=== PATIENT | female | born 1995 | race Caucasian/White ===

== ENCOUNTER 2017-04-12 07:49 | Inpatient (IN) | payer OTHER ==
[~2017-04-12] VITALS: Ht 162.6 cm; Wt 66.4 kg
[2017-04-15] MEDS ORDERED: OXYTOCIN 30U/ 0.9% NaCL 500ML 500 ML IV PRN (04:50)
[2017-04-15] MEDS ORDERED: OXYTOCIN 30U/ 0.9% NaCL 500ML 500 ML IV ONE (04:50)
[2017-04-15] MEDS ORDERED: LACTATED RINGERS 1,000 ML IV SCH ×3 (04:50→11:17)
[2017-04-15] MEDS ORDERED: D5%-LACTATED RINGERS 1,000 ML IV SCH (04:50)
[2017-04-15 05:00] VITALS: BP 120/65
[2017-04-15] MEDS ORDERED: ONDANSETRON 2MG/ML, 2ML IVPush PRN (05:00)
[2017-04-15] MEDS ORDERED: FENTANYL PF 100 MCG/2ML IVPush PRN (05:00)
[2017-04-15] MEDS ORDERED: FENTANYL PF 100 MCG/2ML IV PRN (05:00)
[2017-04-15] MEDS ORDERED: CALCIUM CARBONATE 500 MG TAB.CHEW PO PRN (05:00)
[2017-04-15] MEDS ORDERED: METOCLOPRAMIDE 5 MG/ML, 2ML IVPush PRN (05:00)
[2017-04-15] MEDS ORDERED: ALUMINUM/MAG/SIMETHICONE 30 ML UDC PO PRN (05:00)
[2017-04-15] MEDS ORDERED: TERBUTALINE 1 MG/ML, 1ML IVPush PRN (05:00)
[2017-04-15] MEDS ORDERED: SODIUM CHLORIDE FLUSH 10ML SYR IVF PRN (05:00)
[2017-04-15] MEDS ORDERED: OXYTOCIN 30U/ 0.9% NaCL 500ML 500 ML ONE ×2 (05:07→23:35)
[2017-04-15 05:27] LABS: HEMATOCRIT 33.6 % (34.6-47.8); HEMOGLOBIN 10.6 g/dL (11.7-16.4); WHITE BLOOD COUNT 10.8 x10^3/uL (3.4-10)
[2017-04-15] MEDS ORDERED: FENTANYL/BUPIV./NS/PF 250 ML EPIDCONT ONE (10:01)
[2017-04-15] MEDS ORDERED: BUPIVACAINE 0.25% ONE (10:04)
[2017-04-15] MEDS ORDERED: LIDOCAINE/PF 1.5%-EPI 1:200K, 30ML ONE (10:04)
[2017-04-15] MEDS ORDERED: FENTANYL/BUPIV./NS/PF 250 ML EPIDCONT SCH ×2 (10:58→11:17)
[2017-04-15] MEDS ORDERED: LACTATED RINGERS 1,000 ML IVBOLUS PRN ×2 (11:00→11:30)
[2017-04-15] MEDS ORDERED: EPHEDRINE 50 MG/ML, 1ML IVPush PRN ×2 (11:00→11:30)
[2017-04-15] MEDS ORDERED: NALOXONE 0.4 MG/ML, 1ML IVPush PRN ×2 (11:00→11:30)
[2017-04-15] MEDS ORDERED: ONDANSETRON 2MG/ML, 2ML ONE (22:45)
[2017-04-15] MEDS ORDERED: DIPH,PERTUSS(ACELL),TET VAC/PF NC IM-VACC PRN (23:00)
[2017-04-15] MEDS ORDERED: CARBOPROST TROMETHAMINE 250 MCG/ML, 1ML IM PRN (23:00)
[2017-04-15] MEDS ORDERED: OXYcodone/APAP 5/325MG TABLET PO PRN ×2 (23:00)
[2017-04-15] MEDS ORDERED: MEASLES,MUMPS&RUBELLA VACC/PF 0.5 ML SQ PRN (23:00)
[2017-04-15] MEDS ORDERED: METHYLERGONOVINE 0.2 MG/ML IM PRN (23:00)
[2017-04-15] MEDS ORDERED: MISOPROSTOL 200 MCG TABLET PR PRN (23:00)
[2017-04-15] MEDS ORDERED: DOCUSATE 100 MG CAPSULE PO PRN (23:00)
[2017-04-15] MEDS ORDERED: ONDANSETRON 2MG/ML, 2ML IV PRN (23:00)
[2017-04-15] MEDS ORDERED: ACETAMINOPHEN 325 MG TABLET PO PRN (23:00)
[2017-04-15] MEDS ORDERED: IBUPROFEN 600 MG TABLET PO PRN (23:00)
[2017-04-15] MEDS ORDERED: IBUPROFEN 600 MG TABLET ONE (23:02)
[2017-04-15] MEDS: OXYTOCIN 30U/ 0.9% NaCL 500ML 500 ML IV SCH (23:42)
[2017-04-16 01:02] VITALS: BP 110/59
[2017-04-16 03:54] VITALS: BP 101/54
[2017-04-16 06:23] LABS: HEMATOCRIT 31.3 % (34.6-47.8); HEMOGLOBIN 10.1 g/dL (11.7-16.4); WHITE BLOOD COUNT 20.5 x10^3/uL (3.4-10)
[2017-04-16 06:47] LABS: DIFF TOTAL CELLS COUNTED 100 CELL DIFF
[2017-04-16 06:49] LABS: VERIFY COUNTS? YES
[2017-04-16 06:52] LABS: ANISOCYTOSIS 1+; HYPOCHROMIA 1+; OVALOCYTES 1+
[2017-04-16 06:53] LABS: LARGE PLATELETS 1+
[2017-04-16 07:45] VITALS: BP 96/60
[2017-04-16] MEDS ORDERED: PRENATAL VIT/IRON/FA 1 EACH TABLET PO SCH (09:00)
[2017-04-16 11:50] VITALS: BP 101/66
[2017-04-16 16:00] VITALS: BP 105/67
[2017-04-16 19:30] VITALS: BP 116/70
[2017-04-16] MEDS: OXYTOCIN 30U/ 0.9% NaCL 500ML 500 ML IV SCH (21:25)
[2017-04-17] MEDS: OXYTOCIN 30U/ 0.9% NaCL 500ML 500 ML IV SCH (04:52)
[2017-04-17] MEDS ORDERED: IBUP-1222 PO (10:15)
[2017-04-17] MEDS ORDERED: OXYC-302 PO (10:31)
[2017-04-17] MEDS ORDERED: DOCU-30 PO (10:32)
[2017-04-17 11:34] VITALS: BP 112/65
== END 2017-04-17 11:45 | disposition home or self-care (01) | DRG 775 ==
LOC: LDIP 04-15 04:30 → 2NW 04-16 00:46
PROVIDERS: ADMIT Obstetrics & Gynecology Maternal & Fetal Medicine; ATTEND Obstetrics & Gynecology Maternal & Fetal Medicine
PROC: 10E0XZZ Delivery of Products of Conception, External Approach (ICD-10-PCS; principal; 2017-04-15)
PROC: 00HU33Z Insertion of Infusion Device into Spinal Canal, Percutaneous Approach (ICD-10-PCS; 2017-04-15)
PROC: 3E0R3CZ (ICD-10-PCS; 2017-04-15)
PROC: 3E033VJ Introduction of Other Hormone into Peripheral Vein, Percutaneous Approach (ICD-10-PCS; 2017-04-15)
DX: O80 Encounter for full-term uncomplicated delivery (principal); Z37.0 Single live birth; Z3A.40 40 weeks gestation of pregnancy
CPT/HCPCS: 36415; 85025; 86850; 86900; J3490; J2590; J3010; J7120; J7121

== ENCOUNTER 2019-08-07 03:58 | Inpatient (IN) ==
[~2019-08-07] VITALS: Ht 162.6 cm; Wt 65.9 kg
[~2019-08-07 03:58] MED LIST: DENIES; DOCU-131 PO; IBUP-1222 PO; OXYC-302 PO
[2019-08-07 04:10] VITALS: BP 119/71
[2019-08-07] MEDS: D5%-LACTATED RINGERS 1,000 ML IV SCH ×3 (04:31→20:31)
[2019-08-07] MEDS ORDERED: OXYTOCIN 30U/ 0.9% NaCL 500ML 500 ML IV ONE (04:31)
[2019-08-07] MEDS ORDERED: OXYTOCIN 30U/ 0.9% NaCL 500ML 500 ML IV PRN (04:31)
[2019-08-07] MEDS ORDERED: MISOPROSTOL 25 MCG TABLET ONE (04:34)
[2019-08-07] MEDS ORDERED: LIDOCAINE 1%, 20ML ONE ×2 (04:34→10:54)
[2019-08-07] MEDS ORDERED: NEWBORN KIT ONE (04:34)
[2019-08-07] MEDS ORDERED: MISOPROSTOL 200 MCG TABLET ONE (04:34)
[2019-08-07] MEDS ORDERED: OXYTOCIN 30U/ 0.9% NaCL 500ML 500 ML ONE ×2 (04:35→16:21)
[2019-08-07] MEDS ORDERED: PREN-3 PO (04:50)
[2019-08-07] MEDS ORDERED: TERBUTALINE 1 MG/ML, 1ML IVPush PRN (05:00)
[2019-08-07] MEDS ORDERED: MISOPROSTOL 25 MCG TABLET VG PRN (05:00)
[2019-08-07] MEDS ORDERED: CALCIUM CARBONATE 500 MG TAB.CHEW PO PRN (05:00)
[2019-08-07] MEDS ORDERED: TERBUTALINE 1 MG/ML, 1ML SQ PRN (05:00)
[2019-08-07] MEDS ORDERED: FENTANYL PF 100 MCG/2ML IV PRN (05:00)
[2019-08-07] MEDS ORDERED: FENTANYL PF 100 MCG/2ML IVPush PRN (05:00)
[2019-08-07] MEDS ORDERED: ONDANSETRON 2MG/ML, 2ML IVPush PRN ×2 (05:00→11:30)
[2019-08-07] MEDS: LACTATED RINGERS 1,000 ML IV SCH ×5 (05:12→19:13)
[2019-08-07 05:17] LABS: BASOPHILS # (AUTO) 0.03 x10^3/uL (0-0.1); BASOPHILS % (AUTO) 0 % (0-1); EOSINOPHILS # (AUTO) 0.08 x10^3/uL (0-0.4); EOSINOPHILS % (AUTO) 1 % (1-7); LYMPHOCYTES # (AUTO) 2.16 x10^3/uL (1-3.4); LYMPHOCYTES % (AUTO) 21 % (22-44); MD NO; MEAN CORPUSCULAR HEMOGLOBIN 25.8 pg (27.0-34.8); MEAN CORPUSCULAR HGB CONC 31.5 g/dL (32.4-35.8); MEAN CORPUSCULAR VOLUME 82.1 fL (80-100); MEAN PLATELET VOLUME 10.5 fL (7.4-10.4); MONOCYTES # (AUTO) 0.58 x10^3/uL (0.2-0.8); MONOCYTES % (AUTO) 6 % (2-9); NEUTROPHILS % (AUTO) 73 % (42-75); PLATELET COUNT 222 x10^3/uL (130-400); RED BLOOD COUNT 4.42 x10^6/uL (3.82-5.3); RED CELL DISTRIBUTION WIDTH 14.7 % (9.6-15.2)
[2019-08-07] MEDS ORDERED: FENTANYL/BUPIV./NS/PF 250 ML EPIDCONT SCH ×2 (07:02→11:13)
[2019-08-07] MEDS ORDERED: FENTANYL PF 500 MCG, BUPIVACAINE/PF 0.5%, 30ML 62.5 ML in SODIUM CHLORIDE 0.9% 177.5 ML EPIDCONT SCH (07:30)
[2019-08-07] MEDS ORDERED: BUPIVACAINE 0.25% ONE (10:52)
[2019-08-07] MEDS ORDERED: LIDOCAINE/PF 1.5%-EPI 1:200K, 30ML ONE (10:54)
[2019-08-07] MEDS ORDERED: NALOXONE 0.4 MG/ML, 1ML IVPush PRN (11:30)
[2019-08-07] MEDS ORDERED: LACTATED RINGERS 1,000 ML IVBOLUS PRN (11:30)
[2019-08-07] MEDS ORDERED: EPHEDRINE 50 MG/ML, 1ML IVPush PRN (11:30)
[2019-08-07] MEDS ORDERED: DIPHENHYDRAMINE 50 MG/ML, 1ML IVPush PRN (11:30)
[2019-08-07] MEDS ORDERED: LIDOCAINE/MPF 2%-EPI 1:200K, 20 ML ONE (12:11)
[2019-08-07] MEDS ORDERED: ONDANSETRON 2MG/ML, 2ML ONE (13:26)
[2019-08-07] MEDS ORDERED: SIMETHICONE 80 MG CHEW TAB PO PRN (16:00)
[2019-08-07] MEDS ORDERED: MISOPROSTOL 200 MCG TABLET PR PRN (16:00)
[2019-08-07] MEDS ORDERED: METHYLERGONOVINE 0.2 MG/ML IM PRN (16:00)
[2019-08-07] MEDS ORDERED: CARBOPROST TROMETHAMINE 250 MCG/ML, 1ML IM PRN (16:00)
[2019-08-07] MEDS ORDERED: ACETAMINOPHEN 325 MG TABLET PO PRN (16:00)
[2019-08-07] MEDS ORDERED: OXYcodone/APAP 5/325MG TABLET PO PRN ×2 (16:00)
[2019-08-07] MEDS ORDERED: DOCUSATE 100 MG CAPSULE PO PRN (16:00)
[2019-08-07] MEDS: OXYTOCIN 30U/ 0.9% NaCL 500ML 500 ML IV SCH (16:27)
[2019-08-07 19:40] VITALS: BP 106/63
[2019-08-07 23:58] VITALS: BP 108/66
[2019-08-08] MEDS: OXYTOCIN 30U/ 0.9% NaCL 500ML 500 ML IV SCH ×2 (01:37→11:37)
[2019-08-08] MEDS: LACTATED RINGERS 1,000 ML IV SCH ×2 (03:13→11:13)
[2019-08-08 03:50] VITALS: BP 112/67
[2019-08-08 05:39] LABS: BASOPHILS # (AUTO) 0.03 x10^3/uL (0-0.1); BASOPHILS % (AUTO) 0 % (0-1); EOSINOPHILS # (AUTO) 0.08 x10^3/uL (0-0.4); EOSINOPHILS % (AUTO) 1 % (1-7); LYMPHOCYTES # (AUTO) 2.52 x10^3/uL (1-3.4); LYMPHOCYTES % (AUTO) 22 % (22-44); MD NO; MEAN CORPUSCULAR HEMOGLOBIN 25.7 pg (27.0-34.8); MEAN CORPUSCULAR HGB CONC 31.8 g/dL (32.4-35.8); MEAN CORPUSCULAR VOLUME 80.7 fL (80-100); MEAN PLATELET VOLUME 9.9 fL (7.4-10.4); MONOCYTES # (AUTO) 0.53 x10^3/uL (0.2-0.8); MONOCYTES % (AUTO) 5 % (2-9); NEUTROPHILS # (AUTO) 8.25 x10^3/uL (1.8-6.8); NEUTROPHILS % (AUTO) 72 % (42-75); PLATELET COUNT 194 x10^3/uL (130-400); RED BLOOD COUNT 4.46 x10^6/uL (3.82-5.3); RED CELL DISTRIBUTION WIDTH 15.2 % (9.6-15.2)
[2019-08-08] MEDS: IBUPROFEN 600 MG TABLET PO PRN ×2 (06:44→16:31)
[2019-08-08 08:05] VITALS: BP 105/66
[2019-08-08] MEDS ORDERED: PRENATAL VIT/IRON/FA 1 EACH TABLET PO SCH (09:00)
[2019-08-08 12:00] VITALS: BP 114/74
== END 2019-08-08 16:33 | disposition home or self-care (01) | DRG 807 ==
LOC: LDIP 03:58 → 2NW 20:09
PROVIDERS: ADMIT Obstetrics & Gynecology Maternal & Fetal Medicine; ATTEND Obstetrics & Gynecology Maternal & Fetal Medicine
PROC: 10E0XZZ Delivery of Products of Conception, External Approach (ICD-10-PCS; principal; 2019-08-07)
PROC: 3E0R3BZ Introduction of Anesthetic Agent into Spinal Canal, Percutaneous Approach (ICD-10-PCS; 2019-08-07)
PROC: 00HU33Z Insertion of Infusion Device into Spinal Canal, Percutaneous Approach (ICD-10-PCS; 2019-08-07)
PROC: 10907ZC Drainage of Amniotic Fluid, Therapeutic from Products of Conception, Via Natural or Artificial Opening (ICD-10-PCS; 2019-08-07)
PROC: 3E033VJ Introduction of Other Hormone into Peripheral Vein, Percutaneous Approach (ICD-10-PCS; 2019-08-07)
DX: O80 Encounter for full-term uncomplicated delivery (principal); Z37.0 Single live birth; Z3A.39 39 weeks gestation of pregnancy
CPT/HCPCS: 36415; J3490; S0020; 85025; 86850; 86900; G0378; J2405; J3010; J2590; J7050; J7120

== ENCOUNTER 2019-10-16 10:01 | Day surgery (SDC) | payer OTHER ==
[~2019-10-16] VITALS: Ht 162.6 cm; Wt 54.4 kg
[~2019-10-16 10:01] MED LIST changes: +BUPIVACAINE/PF 0.5% ONE; +PNV11TAB5 PO; +PREN-3 PO
[2019-10-16 10:21] VITALS: BP 98/65
[2019-10-16] MEDS ORDERED: LACTATED RINGERS 1,000 ML IV SCH (10:22)
[2019-10-16 10:57] LABS: HCG UR SG 1.017 (1.003-1.030)
[2019-10-16] MEDS ORDERED: DEXAMETHASONE 4 MG/ML, 1ML ONE (11:46)
[2019-10-16] MEDS ORDERED: ONDANSETRON 2MG/ML, 2ML ONE (11:46)
[2019-10-16] MEDS ORDERED: ROCURONIUM 10 MG/ML,10ML ONE (11:46)
[2019-10-16] MEDS ORDERED: PROPOFOL 10 MG/ML, 20ML ONE (11:46)
[2019-10-16] MEDS ORDERED: CEFAZOLIN 1,000 MG ONE (11:46)
[2019-10-16] MEDS ORDERED: PROPOFOL 10 MG/ML, 50ML ONE (11:46)
[2019-10-16] MEDS ORDERED: KETOROLAC 30 MG/1 ML ONE (11:46)
[2019-10-16] MEDS ORDERED: SUCCINYLCHOLINE 20 MG/ML, 10ML ONE (11:46)
[2019-10-16] MEDS ORDERED: MIDAZOLAM 1 MG/ML, 2ML ONE (11:46)
[2019-10-16] MEDS ORDERED: FENTANYL PF 250 MCG/5ML ONE (11:47)
[2019-10-16] MEDS ORDERED: EPINEPHRINE 1 MG/ML, 1ML INFIL ONE (12:02)
[2019-10-16] MEDS ORDERED: ONDANSETRON 2MG/ML, 2ML IV PRN (12:30)
[2019-10-16] MEDS ORDERED: ONDANSETRON ODT 8 MG PO PRN (12:30)
[2019-10-16] MEDS ORDERED: DIPHENHYDRAMINE 50 MG/ML, 1ML IVPush PRN (12:30)
[2019-10-16] MEDS ORDERED: ACETAMINOPHEN 325 MG TABLET PO PRN (12:30)
[2019-10-16] MEDS ORDERED: PROMETHAZINE 25 MG/ML, 1ML IV PRN (12:30)
[2019-10-16] MEDS ORDERED: OXYcodone 5 MG/5 ML ORAL.SOL UDC PO PRN (12:30)
[2019-10-16] MEDS ORDERED: EPHEDRINE 50 MG/ML, 1ML IM PRN (12:30)
[2019-10-16] MEDS ORDERED: HYDROmorphone 2 MG/ML, 1ML IVPush PRN (12:30)
[2019-10-16] MEDS ORDERED: EPHEDRINE 50 MG/ML, 1ML IVPush PRN (12:30)
[2019-10-16] MEDS ORDERED: FENTANYL PF 100 MCG/2ML IV PRN (12:30)
[2019-10-16] MEDS ORDERED: MEPERIDINE/PF 25MG/ML,1ML IVPush PRN (12:30)
== END 2019-10-16 14:55 | disposition home or self-care (01) ==
LOC: OUT 10:01
PROVIDERS: ATTEND Student in an Organized Health Care Education/Training Program
DX: K42.9 Umbilical hernia without obstruction or gangrene (principal); Z98.890 Other specified postprocedural states
CPT/HCPCS: 49585; 81025; J0171; J0330; J0690; J1100; J1885; J2250; J2405; J2704; J3010